=== PATIENT | female | born 1960 | race Caucasian/White ===

== ENCOUNTER 2019-10-22 23:06 | Emergency (ER) | payer MEDICAID ==
[~2019-10-22] VITALS: Ht 160 cm; Wt 66.7 kg
[~2019-10-22 23:06] MED LIST: ASPI81CH43; BENA20TA14 PO; DOXE50CA57; GLIM4TAB42 PO; GLIP10TA9 PO; HYDR-4833; INSUPOW; LISI-275 PO; METF-372 PO; PRO125RS; SERT-274 PO
[2019-10-23] MEDS ORDERED: HYDROcodone-ACET 5/325MG TAB PO ONE (00:45)
[2019-10-23] MEDS ORDERED: KETOROLAC TROMETH 60MG/2ML VIAL IM ONE (00:45)
[2019-10-23] MEDS ORDERED: ONDANSETRON ODT 4 MG TAB PO ONE (00:45)
[2019-10-23 03:00] VITALS: BP 151/91
== END 2019-10-23 03:32 | disposition home or self-care (01) ==
LOC: ER 23:06
DX: R51 Headache (principal); E11.9 Type 2 diabetes mellitus without complications; K21.9 Gastro-esophageal reflux disease without esophagitis; E78.5 Hyperlipidemia, unspecified; I10 Essential (primary) hypertension; Z90.49 Acquired absence of other specified parts of digestive tract; Z86.73 Personal history of transient ischemic attack (TIA), and cerebral infarction without residual deficits; Z90.710 Acquired absence of both cervix and uterus
CPT/HCPCS: 96372; 99283; J1885; Q0162